=== PATIENT | female | born 1970 | race Caucasian/White ===

== ENCOUNTER 2016-08-11 14:47 | Observation (INO) | payer OTHER ==
[2016-08-11] VITALS (7 sets, daily range): BP systolic 102–147; BP diastolic 53–80; PULSE 65–99; RESP 15–19; O2SAT 98–100
[~2016-08-11] VITALS: Ht 162.6 cm; Wt 75.5 kg
[~2016-08-11 14:47] MED LIST: DOCU100T7 PO; OXYC-176 PO; TAM4 PO; TOR10T PO
[2016-08-11 15:28] LABS: BASOPHILS % (AUTO) 0.2 % (0-3); MONOCYTES % (AUTO) 14.4 % (4-12); Mean Corpuscular Hemoglobin 30.7 pg (27.0-35.0); NEUTROPHILS % (AUTO) 62.2 % (40-74); Platelet Count 197 bil/L (150-400)
[2016-08-11] MEDS ORDERED: 0.9% Sodium Chloride 1,000 ML IV ONE (15:33)
[2016-08-11] MEDS ORDERED: Ondansetron 2 mg/mL 2 mL Inj IVPUSH ONE (15:35)
--- NOTE | 2016-08-11 15:36 | DRSVH ---
PROCEDURE: X-RAY CHEST ONE VIEW, PORTABLE ([id number]) INDICATIONS: Chest pain. TECHNIQUE: One view of the chest was acquired. COMPARISON: None. FINDINGS: Surgical changes and devices: None. Lungs and pleura: Subtle increased attenuation is identified at the left lung base just above the chencho phragm. Otherwise, the aeration of the lungs is within normal limits. No focal consolidation, effus ion, or pneumothorax is evident. Mediastinum: Mediastinal contours appear normal. Heart size is normal. Bones and chest wall: No suspicious bony lesions. Degenerative changes of the imaged spine and shou lders are present. Overlying soft tissues appear unremarkable. IMPRESSION: Questionable subtle airspace disease at the left lung base may represent atelectasis. A subtle developing pneumonia is difficult to exclude. Please correlate clinically. Followup imaging in 4-6 weeks would be helpful to ensure complete resolution. Dictated by: Matheus Rosas M.D. on 08/11/2016 at 14:34 Approved by: Matheus Rosas M.D. on 08/11/2016 at 14:35
[2016-08-11 15:57] LABS: TROPONIN T < 0.010 ug/L (0.0-0.011)
[2016-08-11] MEDS ORDERED: Pantoprazole 40 mg ER24 Tablet PO ONE (16:10)
[2016-08-11 16:12] LABS: APPEARANCE,URINE CLEAR (CLEAR,HAZY); COLOR,URINE YELLOW (YELLOW); OCCULT BLOOD,URINE NEGATIVE (NEGATIVE); PH,URINE 6.5 (5.0-8.0); UROBILINOGEN,URINE NORMAL (NORMAL)
--- NOTE | 2016-08-11 16:36 | ED.REPORT ---
HPI-Chest Pain 40 and Over Date of Service Aug 11, 2016 ED Provider: Michael Park MD The patient is a 45 yo female with history of HTN who was sent to the ER from via EMS for chest pain, SOB, and dizziness. Patient reports not feeling well for the last week, but her symptoms got worse yesterday. She has had dizziness, SOB, and left-sided chest pain that associated with exertion. She was feeling ok when she woke up this morning, then she was going to do some workout when she felt very winded and weak. She describes her chest pain as "tight, tense, and heavy." The chest pain radiates to her left neck, but she thinks it is due to her chronic neck pain. The chest pain is worse with exertion and she feels like it would "pop out of my chest." Other associated symptoms include hot flashes, subjective fever, chills, palpitations, SOB, heartburn, nausea, tingling in the left fingers, dizziness, and generalized fatigue. All these symptoms worsen on exertion. She denies cough, headache, blurry vision, vomiting , abdominal pain, diarrhea, constipation, dysuria, or urinary incontinence. She went to the grocery store to check her BP and it was 89/62 with HR of 107 this morning. She called her PCP and was recommended to go to , where she had a temperature of 100.1. Patient took a trip to [place] last week. She reports irregular vaginal spotting with the LMP was a month ago. Last labs were done a year ago and only significant for elevated cholesterol. She denies any history of thyroid issues and states this to be generally healthy. Family history of CAD in her paternal grandparents. Nursing Notes Stated Complaint: CHEST PAIN Chief Complaint: Chest Pain Nursing Notes Reviewed: Yes Allergies: Coded Allergies: No Known Allergies (Verified Allergy, Unknown, 08/11/16) Scheduled Docusate Sodium-Expunged Drug, Do Not Renew! (Stool Softener-Expunged Drug, Do Not Renew!) 100 Mg Tablet 100 MG PO HS Ketorolac-Expunged Drug, Do Not Renew! (Ketorolac-Expunged Drug, Do Not Renew!) 10 Mg Tablet 10 MG PO PRN Take 1 tab every 8 hours if needed for pain Oxycodone/APAP-Expunged Drug, Do Not Renew! (Percocet 5/325-Expunged Drug, Do Not Renew!) 1 Each Tablet 1 TAB PO PRN Take 1-2 tabs every 3-4 hours if needed for pain Tamsulosin-Expunged Drug, Do Not Renew! (Flomax-Expunged Drug, Do Not Renew!) 0.4 Mg Capsule 0.4 MG PO HS General Time Seen by MD: 15:15 Chief Complaint Chest pain Hx Obtained From: Patient, Other family... (Mother) Arrived By: Ambulance, Walk-in Sudden in Onset?: Yes Onset Occurred: 1 week ago Symptom Duration: Waxes and wanes Location: : Chest left Quality: Heaviness Radiation: : Neck Severity: Current: No pain currently Severity: Maximum: Moderate Associated with: Reports: Diaphoresis, Dizziness, Fatigue, Fever, Lightheaded, Nausea, Near-syncope, Numbness/Tingling, Palpitations, Shortness of Breath, Weakness, Denies: Cough, productive, Syncope, Vomiting Pertinent Negative: Pt denies other symptoms Exacerbated by: Exertion, mild, Movement Relieved by: Rest Recent Healthcare: No recent doctor visit, No recent hospitalization Similar Sx Previous: No Risk Factors )( CAD Risk Stratification Family history Hyperlipidemia Hypertension Risk factors reviewed )( PE Risk Stratification No risk factors Well's Criteria for PE Clin suspicion of DVT (3) Well's PE Score: 3-6 pts (mod risk 20.5%) Past Medical History Past Medical History Pelvic inflammatory disease Kidney stones Reports: Hypertension Past Surgical History Tubal ligation Laparoscopy for PID Back surgery Family History Paternal grandparents with CAD Mother with HTN Smoking History Former Smoker (quit in 2000) Social History Alcohol Use: "Social" Drug Use: THC Other Social History: Good social support, Local resident Ambulatory Status Independent Review of Systems Constitutional: Reports: Chills, Fatigue, Fever, Malaise, Weakness - generalized, Denies: Recent wt loss Respiratory: Reports: Shortness of breath, Denies: Hemoptysis, Non-productive cough, Pleuritic pain, Wheezing Cardiovascular: Reports: Chest pain, Dyspnea on exertion, Palpitations, Denies: Edema, Syncope GI: Reports: Nausea, Denies: Abdominal pain, Anorexia, Bloody/tarry stool, Constipation, Diarrhea , Hematochezia, Vomiting Musculoskeletal: Reports: Myalgia, Neck pain, Denies: Back pain Neurologic: Reports: Dizziness, Lightheaded, Weakness, Denies: Abnormal movement, Bladder dysfunction, Bowel dysfunction, Change LOC , Confusion, Headache, Numbness, Slurred speech, Spinning sensation Complete sys rev & neg: except as marked. Physical Exam Initial Vital Signs Vital Signs (First) Date Time Temp Pulse Resp B/P Pulse Ox O2 Delivery O2 Flow Rate FiO2 08/11/16 14:54 37.2 91 15 142/66 98 Room Air Initial VS: Reviewed, Vital signs normal Head / Eyes: Atraumatic, Normocephalic, PERRL ENT: Mucous membranes moist, Conjunctiva normal, No scleral icterus Neck: Supple, Non-tender, Full range of motion Back: No CVA tenderness Lymphatic: No lymphadenopathy Extremities: Vascular intact, Neuro intact, No swelling, No tenderness Skin: Warm, Dry, No cyanosis Neurologic: Alert, Oriented, Nonfocal Psychiatric: Mood/affect normal, Behavior normal, Normal thought content General/Constitutional: Awake, Alert, Well developed, Well hydrated, Well nourished, Cooperative, Not toxic appearing Appears tired and uncomfortable, but not in pain or acute distress. Respiratory / Chest: Atraumatic, Breath sounds NL, Breath sounds = bilat, No respiratory distress, No rales, No rhonchi, No wheezing, No retractions patient complains of dizziness with taking deep breath Cardiovascular: Heart rate NL, Regular rhythm, Heart sounds NL, No gallop, No murmurs Abdomen: Atraumatic, Soft, Non-tender, No guarding, No rebound, BS normoactive , No distention Neurologic: Oriented X3, Speech NL, No motor deficits, No sensory deficits, CN II - XII intact, Cerebellar NL, Memory NL Psychiatric: Affect NL, Mood NL, Judgment/insight NL, Thought content NL Abnormal Mood/Affect: Positive: Anxious Interpretation & Diagnostics Lab Results Interpretation Result Diagram: 08/11/16 1523 08/11/16 1523 Test 08/11/16 15:23 08/11/16 15:58 White Blood Count 8.0th/mm3 (3.8-10.1) Red Blood Count 4.62mil/mm3 (3.90-5.20) Hemoglobin 14.2g/dL (12.0-15.6) Hematocrit 41.1% (35.0-46.0) Mean Corpuscular Volume 89.0fL (81-100) Mean Corpuscular Hemoglobin 30.7pg (27.0-35.0) Mean Corpuscular Hemoglobin Concent 34.5% (32.0-37.0) Red Cell Distribution Width 12.8% (12.3-15.4) Platelet Count 197bil/L (150-400) Neutrophils (%) (Auto) 62.2% (40-74) Lymphocytes (%) (Auto) 21.7% (14-46) Monocytes (%) (Auto) 14.4% (4-12) Eosinophils (%) (Auto) 1.0% (0-5) Basophils (%) (Auto) 0.2% (0-3) D-Dimer 0.56mg/L FEU (<0.50) Sodium Level 135mEq/L (134-144) Potassium Level 3.8mEq/L (3.5-5.2) Chloride Level 97mEq/L (97-108) Carbon Dioxide Level 20mmol/L (18-29) Blood Urea Nitrogen 20mg/dL (6-24) Creatinine 1.18mg/dL (0.57-1.00) Estimat Glomerular Filtration Rate 70mL/min (>59) Glucose Level 135mg/dL (60-99) Calcium Level 10.3mg/dL (8.5-10.1) Magnesium Level 2.0mg/dL (1.6-2.6) Total Bilirubin 0.4mg/dL (0.0-1.2) Aspartate Amino Transf (AST/SGOT) 15U/L (0-50) Alanine Aminotransferase (ALT/SGPT) 16U/L (0-32) Alkaline Phosphatase 63U/L (25-150) Total Protein 7.5g/dL (6.4-8.4) Albumin 4.2g/dL (3.4-5.0) Thyroid Stimulating Hormone (TSH) 1.600uIU/mL (0.450-4.500) Urine Color Yellow (YELLOW) Urine Appearance Clear (CLEAR,HAZY) Urine pH 6.5 (5.0-8.0) Urine Specific [place] <1.005 (1.003-1.035) Urine Protein Tracemg/dL (NEG,TRACE) Urine Glucose (UA) Negativemg/dL (NEGATIVE) Urine Ketones Negativemg/dL (NEGATIVE) Urine Occult Blood Negative (NEGATIVE) Urine Nitrite Negative (NEGATIVE) Urine Bilirubin Negative (NEGATIVE) Urine Urobilinogen Normalmg/dL (NORMAL) Urine Leukocyte Esterase Small (NEGATIVE) Urine RBC 0-2/hpf (0-2) Urine WBC 11-50/hpf (0-5) Urine Epithelial Cells Moderate/hpf (NONE-MOD) Urine Crystals None seen (NONE SEEN) Urine Bacteria Many/hpf (NONE-FEW) Urine Hyaline Casts None/lpf (NONE) Urine Granular Casts None seen (NONE SEEN) Urine Waxy Casts None seen (NONE SEEN) Urine Red Blood Cell Casts None seen (NONE SEEN) Urine White Blood Cell Casts None seen (NONE SEEN) Urine Mucus None seen (None Seen) Urine Trichomonas None seen (NONE SEEN) Urine Yeast None (NONE SEEN) Urinalysis Comment None Urine Culture Reflexed Indicated Lab values outside NL range: no clinical significance. Lab Results Interpretation: Positive UA. Urine negative. Ddimer 0.56 ECG Interpretation Time: 15:10 Interpreted by: ED physician Normal ECG Interpretation: Normal ECG w/ rate of... (74), Normal rate, Normal sinus rhythm, No acute ischemic changes, Normal intervals X-Ray Chest Interpretation Chest Xray Interpretation: IMPRESSION: Questionable subtle airspace disease at the left lung base may represent atelectasis. A subtle developing pneumonia is difficult to exclude. Please correlate clinically. Followup imaging in 4-6 weeks would be helpful to ensure complete resolution. Dictated by: Matheus Rosas M.D. on 08/11/2016 at 14:34 Approved by: Matheus Rosas M.D. on 08/11/2016 at 14:35 View: Portable Interpretation / Wet Read by: Interpret - Radiologist CT Chest Interpretation IMPRESSION: 1. Diagnostic sensitivity of study diminished by suboptimal contrast opacification of several segmental and subsegmental pulmonary arteries. 2. No large central pulmonary numbness. No pulmonary embolus identified in the well opacified segmental and subsegmental pulmonary arteries. Small pulmonary emboli cannot be excluded in the suboptimally opacified segmental and subsegmental pulmonary arteries. 2. Atherosclerosis. 3. No acute lung opacities. 4. No pleural effusions. Dictated by: Remedios Call MD, PhD on 08/11/2016 at 18:14 Approved by: Remedios Call MD, PhD on 08/11/2016 at 18:18 Interpretation / Wet Read by: Interpret - Radiologist Re-Eval/Medical Decision Med Decision/Clinical Course 45 yo female with history of HTN and hyperlipidemia who was sent to the ER from via EMS for multiple concerning symptoms onset 1 week. She admits to new- onset chest pain, SOB, and dizziness on exertion. She also has had several symptoms including hot flashes, subjective fever, chills, palpitations, SOB, heartburn, nausea, tingling in the left fingers, dizziness, and generalized fatigue. Patient admits to recent long car ride to [place] last week. No history of PE/DVT in the past. On exam, patient appears fatigue, but not in acute distress. Lung sounds clear with no rales or wheezes noted. The rest of her exam was normal as well. EKG: normal sinus rhythm and rate (74) Labs show: Positive UA. Urine negative. Ddimer 0.56 Slightly elevated Cr 1.16 Normal CBC and electrolytes CXR: Questionable subtle airspace disease at the left lung base may represent atelectasis. A subtle developing pneumonia is difficult to exclude. Chest CT: No pulmonary embolus identified in the well opacified segmental and subsegmental pulmonary arteries. Small pulmonary emboli cannot be excluded in the suboptimally opacified segmental and subsegmental pulmonary arteries. PE and pneumonia were ruled out by chest CT. Given her age and history, pretest probability of CAD is intermediate. Therefore, she should be admitted to the hospital on observation for a stress test in the morning. She was given a dose of Protonix and Zofran in the ER. She also received a liter of NS. Patient declined pain medication. All labs and imaging findings discussed with the patient and her family. Plan for admission for possible stress test in the morning. Patient verbalized understanding. Source of Hx: Family Time of Eval: 16:30 Patient Status: Condition unchanged Re-Evaluation/Progress Note: Patient rechecked and still feels dizzy with sitting up. Vital signs are within normal limit. Time of Eval: 17:05 Patient Status: Condition improved Re-Evaluation/Progress Note: Patient rechecked. Stated she was having some chest heaviness and dizziness as she walked to the bathroom earlier, but she feels better now. Declined pain medication. Labs result discussed and indication for chest CT. Plan for admission to rule out ACS. Patient verbalizes understanding and concurs with the plan. Consultation : Referral / Consult Name: Al Kumar MD Consulted With: Hospitalist Call Returned at: 17:00 [place]: Will see patient, Agrees with plan, Accepts admit Note: Hospitalist will see the patient after CT chest. Counseled Regarding: Diagnosis, Lab results, Need for admission Discharge & Departure Shift Change Sign-Out Response to Therapy: Improved Primary Impression: Chest pain on exertion Disposition: ADMITTED TO HOSPITAL Discharge Condition All VS Reviewed: Yes Condition: Stable Referrals: [facility] Attending Statement Seen and examined with Dr Jaffe on 08/11. Agree with above. copies to: [facility] Gerson Jaffe DO Aug 11, 2016 15:17 Michael Park MD Aug 11, 2016 19:01 Gerson Jaffe DO Aug 11, 2016 15:17
[2016-08-11] MEDS ORDERED: Alum-Mag Hydrox-Simeth 30 mL Suspension PO PRN (17:15)
[2016-08-11] MEDS ORDERED: Ondansetron 2 mg/mL 2 mL Inj IVPUSH PRN (17:15)
[2016-08-11] MEDS ORDERED: Polyethylene Glycol (PEG) 17 Gm Powder PO PRN (17:15)
--- NOTE | 2016-08-11 18:20 | DRSVH ---
PROCEDURE: CT ANGIO CHEST PULMONARY EMBOLISM ([id number]) INDICATIONS: SOB, CP TECHNIQUE: After the administration of intravenous contrast, 2 mm thick sections acquired from the pulmonary api anntia to the posterior costophrenic angles. 3-dimensional maximum intensity projection (MIP) coronal a nd sagittal reformats were then acquired through the thorax. For radiation dose reduction, the follo wing was used: automated exposure control, adjustment of mA and/or kV according to patient size. COMPARISON: None. FINDINGS: Image quality: Limited by suboptimal contrast opacification of several segmental and subsegmental pu lmonary arteries. Pulmonary arteries: Pulmonary arteries are normal in size, and demonstrate no intraluminal filling d efects to suggest large central pulmonary embolism. Lungs and pleura: Lungs are clear. No pleural effusions or pneumothorax. Central and peripheral ai rways are patent. Mediastinum: Heart size is normal, without pericardial effusion. Atherosclerotic calcifications are noted in the aorta and great vessels. No mediastinal or hilar adenopathy. Thoracic aorta is normal in caliber and enhancement. Esophagus is normal in caliber, without hiatal hernia. Bones and chest wall: No suspicious bony lesions. Ribs and thoracic spine appear intact throughout. Spine degenerative disease and facet arthropathy noted. Thyroid gland is within normal limits whe re visualized. No axillary or supraclavicular adenopathy. Abdomen: Visualized upper abdominal solid organs appear normal in the early arterial phase of enhanc ement. IMPRESSION: 1. Diagnostic sensitivity of study diminished by suboptimal contrast opacification of several segmen naveen and subsegmental pulmonary arteries. 2. No large central pulmonary numbness. No pulmonary embolus identified in the well opacified segme ntal and subsegmental pulmonary arteries. Small pulmonary emboli cannot be excluded in the suboptima lly opacified segmental and subsegmental pulmonary arteries. 2. Atherosclerosis. 3. No acute lung opacities. 4. No pleural effusions. Dictated by: Remedios Call MD, PhD on 08/11/2016 at 18:14 Approved by: Remedios Call MD, PhD on 08/11/2016 at 18:18
--- NOTE | 2016-08-11 18:53 | PCM.HPMED ---
Subjective Date of Service Aug 11, 2016 Primary Provider: Admitting Physician: Primary Care Physician: Mena Thomas DO Attending Physician: Chief Complaint: Chest pain History of Present Illness: Patient is a 45-year-old female with past medical history of hypertension. She presented to emergency department complaining of chest pain that is associated with subjective shortness of breath and dizziness. Her symptoms started two days ago after an intensive work out. Today she tried to work out again and felt the same symptoms again. Her pain is worse on exertion better at rest and after pain meds. Pain is reproducible on palpation. Pain radiates to her left neck though patient also has chronic neck pain. She has several other symptoms like hot flashes, palpitations, hot flashes, heartburn, nausea, tingling in her fingers, generalized fatigue. All these symptoms worsen with exertion. [facility] which was 89[facility]62 with heart rate of 107. She called her PCP and was recommended to go to urgent care. She has temperature of 100.1 at the urgent care. Patient had recent trip to [place]. She has family history of coronary artery disease in her grandparents. In the emergency department her vitals were stable, she had mildly elevated calcium 10.3. TSH was normal. Creatinine was mildly elevated 1.18 . D-dimer was elevated. Given patient's history of recent prolonged car trip, tachycardia, shortness of breath and chest pain CT scan of the chest with contrast was ordered to rule out PE. Emergency physician asked medicine to observe the patient in the hospital for further regulation of her chest pain. I will check her troponins 2, monitor on telemetry. Patient can have treadmill stress test tomorrow if possible. We will hydrate the patient with normal saline to treat her mild hypercalcemia. CT chest did not show PE. Review of Systems: GENERAL: + malaise, no fevers., SEE HPI HEENT: Negative for frequent or significant headaches, All other reviewed and negative other than HPI. Allergies Coded Allergies: No Known Allergies (Verified Allergy, Unknown, 08/11/16) Home Medications Lisinopril, HCTZ for HTN, Naproxen for colar bone, neck and shoulder discomfort PMH HTN, Neck pain, shoulder pain Family History CAD grandparents HTN Social History Hx Alcohol Use: Yes (varies) Hx Substance Use: Yes (MArijuana) Hx Tobacco Use: No Smoking Status: Former Smoker (quit in 2000) Exam Vital Signs Vital Sign - Last Date Time Temp Pulse Resp B/P Pulse Ox O2 Delivery O2 Flow Rate FiO2 08/11/16 14:54 37.2 91 15 142/66 98 Room Air Exam GENERAL: Alert, not in distress, cooperative HEAD: atraumatic, normocephalic, no bruises. EYES: DALIA, EOMI, anicteric, able to fully open and close eyelids SKIN: Skin color normal, turgor normal. No visible rashes or lesions. EAR, NOSE, MOUTH, THROAT: Lips, oral mucosa, tongue gums, oropharynx are moist , pink, no lesions. Ears normal appearance, no lesions. NECK: no jugulovenous distention, no carotid bruits, carotid pulse normal contour, No carotid bruit, supple, no enlarged lymph nodes appreciated; ROM normal. RESPIRATORY: Lungs clear to auscultation. Good diaphragmatic excursion. Normal percussion sound. CARDIAC: normal S1 and S2; no rubs, murmurs, or gallops; regular rate and rhythm ABDOMEN: Abdomen soft, non-tender. BS normal. No masses or organomegaly. MUSCULOSKELETAL: ROM full, muscles are not tender EXTREMITIES: no pitting edema in LE, no deformities, clubbing or no skin discoloration. NEURO: Alert, oriented X 3, Sensation grossly intact., Cranial nerves II-XII intact, Grossly normal motor function. PULSES: 2+ radial, 2+ carotid Lab and Diagnostics Result Diagram: 08/11/16 1523 08/11/16 1523 X-Rays, CTs and MRIs CXR IMPRESSION: Questionable subtle airspace disease at the left lung base may represent atelectasis. A subtle developing pneumonia is difficult to exclude. Please correlate clinically. Followup imaging in 4-6 weeks would be helpful to ensure complete resolution. Assessment & Plan Patient is a 45-year-old female with past medical history of hypertension. She presented to emergency department complaining of chest pain that is associated with subjective shortness of breath and dizziness. Her symptoms started last week, and slowly have been getting worse. Her pain is worse on exertion better at rest and after pain meds. Pain radiates to her left neck though patient also has chronic neck pain. She has several other symptoms like hot flashes, palpitations, feeling hot, heartburn, nausea, tingling in her fingers, generalized fatigue. All these symptoms worsen with exertion. She checks her blood pressure [employer] which was 89/62 with heart rate of 107. She called her PCP and was recommended to go to urgent care. She has temperature of 100.1 at the urgent care. Patient had recent trip to [place]. She has family history of coronary artery disease in her grandparents. In the emergency department her vitals were stable, she had mildly elevated calcium 10.3. TSH was normal. Creatinine was mildly elevated 1.18 . D-dimer was elevated. Given patient's history of recent prolonged car trip, tachycardia, shortness of breath and chest pain CT scan of the chest with contrast was ordered to rule out PE. I personally reviewed her chest x-ray which showed clear lungs. I personally reviewed her EKG which showed normal sinus rhythm. Emergency physician asked medicine to observe the patient in the hospital for further evaluation of her chest pain. I will check her troponins 2, monitor on telemetry. Patient can have treadmill stress test tomorrow if possible. We will hydrate the patient with normal saline to treat her mild hypercalcemia. I will monitor and replace her electrolytes as needed. VTE Prophylaxis: Sub-Q Enoxaparin Resuscitation Status: CPR: Attempt Resuscitation Al Kumar MD Aug 11, 2016 17:19
[2016-08-11] MEDS: 0.9% Sodium Chloride 1,000 ML IV SCH (19:34)
[2016-08-11] MEDS ORDERED: ROB500 PO (20:04)
[2016-08-12 01:29] VITALS: BP 102/68; PULSE 63; RESP 16; O2SAT 99
[2016-08-12] MEDS: 0.9% Sodium Chloride 1,000 ML IV SCH ×2 (05:26→15:00)
[2016-08-12 05:46] VITALS: BP 106/71; PULSE 67; RESP 16; O2SAT 99
[2016-08-12 07:04] LABS: TROPONIN T < 0.010 ug/L (0.0-0.011)
[2016-08-12] MEDS ORDERED: cefTRIAXone Inj 1,000 MG in Dextrose 5% Minibag Plus 50 ML IV SCH (08:20)
[2016-08-12 08:36] VITALS: BP 117/80; PULSE 60; RESP 16; O2SAT 100
[2016-08-12] MEDS ORDERED: LISI-567 PO (09:20)
[2016-08-12] MEDS ORDERED: HYDR12.55 PO (09:20)
[2016-08-12 09:55] VITALS: PULSE 85
[2016-08-12 12:42] VITALS: BP 142/83; PULSE 91; RESP 16; O2SAT 100
[2016-08-12 16:40] VITALS: BP 142/83; PULSE 80; RESP 16; O2SAT 99
--- NOTE | 2016-08-12 17:08 | DRSVH ---
[facility] [address] [place] [address] Echocardiogram Report Name: CHINYERE HARVEY JStudcipriano Giron te: 08/12/2016 Hospital Exam Location: [facility] Gender: Female : 1970 Age: 45 yrs Reason For Study: Chest pain Ordering Physician: HOSPITALIST [facility] Performed By: John Paul Dominique Referring Physician: RODRIGUEZ HOUSER Interpretation Summary This was a normal stress echocardiogram. There is no evidence for any myocardial ischemia or previous myocardial infarction. Resting LV function is normal with appropriate augmentation with exercise. The patient demonstrated mildly reduced exercise capacity without angina or significant ECG evidence of ischemia. Stress Results Protocol: MJ Maximum Predicted HR: 173 bpm Target HR: 147 bpm % Maximum Predicted HR: 86 % DurationHeart Rate Stage (mm:ss) (bpm) BP BASELINE 74 130/96 STAGE 1 3:00 12 7 170/82 STAGE 2 3:00 14 2 190/80 STAGE 3 0:17 14 9 / Stress Duration: 6:17 mm:ss * Maximum Stress HR: 149 bpm * Procedure: A two-dimensional exercise stress echocardiogram was performed. The study quality was technically adequate. There is no prior echocardiogram noted for this patient. There were no complications. Stress Test: The patient exercised for 6:17 on a standard Mj protocol. The treadmill was stopped when the patient became light headed. She began to stumble on treadmill but did not fall. The estimated YVONNE is +22%. There was a normal heart rate and blood pressure response to exercise. The patient developed headache during exercise. The patient did not have chest pain. The baseline ECG displays normal sinus rhythm. The resting ECG is normal. There was no significant ST segment depression with stress. There were no significant arrhythmias noted with stress. Rest Echo: Left ventricular size and wall thickness are normal. Left ventricular ejection fraction is estimated to be 60-65%. Stress Echo: The post stress ejection fraction is estimated to be 65-70%. There are no new focal wall motion abnormalities. Reading Physician:05:07 PM
--- NOTE | 2016-08-12 17:43 | PCM.DIMED ---
Discharge Instructions Date of Service Aug 12, 2016 Dates of Hospitalization Aug 11, 2016 at 17:19 Discharge Diagnosis Discharge Diagnosis # Chest pain ACS ruled out # Acute UTI #Acute kidney injury due to dehydration and UTI Diet Discharge Diet: No restrictions Activity Discharge Activity: No restrictions Call your provider Call your provider for: Fever or Chills, Shortness of breath, Bleeding, Chest pain, Vomitting, Excessive diarrhea, Weakness (unilateral) Patient Instructions Patient Instructions You were hospitalized due to chest pressure. EKG, cardiac enzymes, stress test negative for heart attack. Blood work showed he had some dehydration and slight kidney injury which responded to IV fluids. You also have UTI. Please continue Keflex for 3 days. Please keep yourself hydrated. Follow-up Provider: Mena Thomas DO Follow-up with PCP in: 1 week Bhavesh Carlos MD Aug 12, 2016 17:43
[2016-08-12] MEDS ORDERED: CEPH-512 PO (17:44)
--- NOTE | 2016-08-12 18:12 | PCM.DC.MED ---
Discharge Summary Date of Service Aug 12, 2016 Dates of Hospitalization Date of Hospital Admission Aug 11, 2016 at 17:19 Date of Discharge: Aug 12, 2016 Providers: Admitting Physician: Bhavesh Carlos MD Primary Care Physician: Mena Thmoas DO Attending Physician: Bhavesh Carlos MD Diagnosis at Time of Discharge Diagnosis at Time of Discharge # Chest pain ACS ruled out # Acute UTI #Acute kidney injury due to dehydration and UTI Procedures XRay, CTs & MRIs CXR IMPRESSION: Questionable subtle airspace disease at the left lung base may represent atelectasis. A subtle developing pneumonia is difficult to exclude. Please correlate clinically. Followup imaging in 4-6 weeks would be helpful to ensure complete resolution. Cardiac Echo Impression Interpretation Summary This was a normal stress echocardiogram. There is no evidence for any myocardial ischemia or previous myocardial infarction. Resting LV function is normal with appropriate augmentation with exercise. The patient demonstrated mildly reduced exercise capacity without angina or significant ECG evidence of ischemia. Brief History per HPI Patient is a 45-year-old female with past medical history of hypertension. She presented to emergency department complaining of chest pain that is associated with subjective shortness of breath and dizziness. Her symptoms started two days ago after an intensive work out. Today she tried to work out again and felt the same symptoms again. Her pain is worse on exertion better at rest and after pain meds. Pain is reproducible on palpation. Pain radiates to her left neck though patient also has chronic neck pain. She has several other symptoms like hot flashes, palpitations, hot flashes, heartburn, nausea, tingling in her fingers, generalized fatigue. All these symptoms worsen with exertion. She checks [facility] which [facility] 89/62 with heart rate of 107. She called her PCP and was recommended to go to urgent care. She has temperature of 100.1 at the urgent care. Patient had recent trip to [place]. She has family history of coronary artery disease in her grandparents. In the emergency department her vitals were stable, she had mildly elevated calcium 10.3. TSH was normal. Creatinine was mildly elevated 1.18 . D-dimer was elevated. Given patient's history of recent prolonged car trip, tachycardia, shortness of breath and chest pain CT scan of the chest with contrast was ordered to rule out PE. Emergency physician asked medicine to observe the patient in the hospital for further regulation of her chest pain. I will check her troponins 2, monitor on telemetry. Patient can have treadmill stress test tomorrow if possible. We will hydrate the patient with normal saline to treat her mild hypercalcemia. CT chest did not show PE. Hospital Course Patient is a 45-year-old female with past medical history of hypertension. She presented to emergency department complaining of chest pain that is associated with subjective shortness of breath and dizziness. Her symptoms started last week, and slowly have been getting worse. Her pain is worse on exertion better at rest and after pain meds. Pain radiates to her left neck though patient also has chronic neck pain. She has several other symptoms like hot flashes, palpitations, feeling hot, heartburn, nausea, tingling in her fingers, generalized fatigue. All these symptoms worsen with exertion. [facility] which was 89/62 with heart rate of 107. She called her PCP and was recommended to go to urgent care. She has temperature of 100.1 at the urgent care. Patient had recent trip to [place]. She has family history of coronary artery disease in her grandparents. In the emergency department her vitals were stable, she had mildly elevated calcium 10.3. TSH was normal. Creatinine was mildly elevated 1.18 . D-dimer was elevated. Given patient's history of recent prolonged car trip, tachycardia, shortness of breath and chest pain CT scan of the chest with contrast was ordered to rule out PE. I personally reviewed her chest x-ray which showed clear lungs. I personally reviewed her EKG which showed normal sinus rhythm. Emergency physician asked medicine to observe the patient in the hospital for further evaluation of her chest pain. # Chest pressure,ACS ruled out Probably due to demand ischemia due to dehydration -EKG negative, troponin negative, stress echo negative -Symptoms resolved # RACHEL /dehydration -Due to combination of UTI, poor oral intake, antihypertensive/diuretic use Patient had some RACHEL,Responded to IV Fluids Initial creatinine 1.15, improved to 0.69 # Asymptomatic UTI -Urine with pyuria and urine culture growing > 100,000 GNRs -Treated with ceftriaxone. Discharged on Keflex # Hypertension -Resume BP meds # History of kidney stones -Advised to follow-up with PCP Discharge home Condition on discharge stable Exam Vital Signs (Last) Date Time Temp Pulse Resp B/P Pulse Ox O2 Delivery O2 Flow Rate FiO2 08/12/16 16:40 37.3 80 16 142/83 99 Room Air Exam GENERAL: Alert, not in distress, cooperative HEAD: atraumatic, normocephalic, no bruises. EYES: DALIA, EOMI, anicteric, able to fully open and close eyelids SKIN: Skin color normal, turgor normal. No visible rashes or lesions. EAR, NOSE, MOUTH, THROAT: Lips, oral mucosa, tongue gums, oropharynx are moist , pink, no lesions. Ears normal appearance, no lesions. NECK: no jugulovenous distention, no carotid bruits, carotid pulse normal contour, No carotid bruit, supple, no enlarged lymph nodes appreciated; ROM normal. RESPIRATORY: Lungs clear to auscultation. Good diaphragmatic excursion. Normal percussion sound. CARDIAC: normal S1 and S2; no rubs, murmurs, or gallops; regular rate and rhythm ABDOMEN: Abdomen soft, non-tender. BS normal. No masses or organomegaly. MUSCULOSKELETAL: ROM full, muscles are not tender EXTREMITIES: no pitting edema in LE, no deformities, clubbing or no skin discoloration. NEURO: Alert, oriented X 3, Sensation grossly intact., Cranial nerves II-XII intact, Grossly normal motor function. PULSES: 2+ radial, 2+ carotid Test 08/11/16 15:23 08/11/16 15:58 08/12/16 05:55 White Blood Count 8.0th/mm3 (3.8-10.1) Red Blood Count 4.62mil/mm3 (3.90-5.20) Hemoglobin 14.2g/dL (12.0-15.6) Hematocrit 41.1% (35.0-46.0) Mean Corpuscular Volume 89.0fL (81-100) Mean Corpuscular Hemoglobin 30.7pg (27.0-35.0) Mean Corpuscular Hemoglobin Concent 34.5% (32.0-37.0) Red Cell Distribution Width 12.8% (12.3-15.4) Platelet Count 197bil/L (150-400) Neutrophils (%) (Auto) 62.2% (40-74) Lymphocytes (%) (Auto) 21.7% (14-46) Monocytes (%) (Auto) 14.4% (4-12) Eosinophils (%) (Auto) 1.0% (0-5) Basophils (%) (Auto) 0.2% (0-3) D-Dimer 0.56mg/L FEU (<0.50) Magnesium Level 2.0mg/dL (1.6-2.6) Thyroid Stimulating Hormone (TSH) 1.600uIU/mL (0.450-4.500) Urine Color Yellow (YELLOW) Urine Appearance Clear (CLEAR,HAZY) Urine pH 6.5 (5.0-8.0) Urine Specific [place] <1.005 (1.003-1.035) Urine Protein Tracemg/dL (NEG,TRACE) Urine Glucose (UA) Negativemg/dL (NEGATIVE) Urine Ketones Negativemg/dL (NEGATIVE) Urine Occult Blood Negative (NEGATIVE) Urine Nitrite Negative (NEGATIVE) Urine Bilirubin Negative (NEGATIVE) Urine Urobilinogen Normalmg/dL (NORMAL) Urine Leukocyte Esterase Small (NEGATIVE) Urine RBC 0-2/hpf (0-2) Urine WBC 11-50/hpf (0-5) Urine Epithelial Cells Moderate/hpf (NONE-MOD) Urine Crystals None seen (NONE SEEN) Urine Bacteria Many/hpf (NONE-FEW) Urine Hyaline Casts None/lpf (NONE) Urine Granular Casts None seen (NONE SEEN) Urine Waxy Casts None seen (NONE SEEN) Urine Red Blood Cell Casts None seen (NONE SEEN) Urine White Blood Cell Casts None seen (NONE SEEN) Urine Mucus None seen (None Seen) Urine Trichomonas None seen (NONE SEEN) Urine Yeast None (NONE SEEN) Urinalysis Comment None Urine Culture Reflexed Indicated Sodium Level 140mEq/L (134-144) Potassium Level 4.3mEq/L (3.5-5.2) Chloride Level 106mEq/L (97-108) Carbon Dioxide Level 17mmol/L (18-29) Blood Urea Nitrogen 16mg/dL (6-24) Creatinine 0.69mg/dL (0.57-1.00) Estimat Glomerular Filtration Rate 131mL/min (>59) Glucose Level 116mg/dL (60-99) Calcium Level 8.9mg/dL (8.5-10.1) Total Bilirubin 0.3mg/dL (0.0-1.2) Aspartate Amino Transf (AST/SGOT) 12U/L (0-50) Alanine Aminotransferase (ALT/SGPT) 11U/L (0-32) Alkaline Phosphatase 56U/L (25-150) Total Creatine Kinase 68U/L (21-215) Troponin T < 0.010ug/L (0.0-0.011) Total Protein 6.2g/dL (6.4-8.4) Albumin 3.6g/dL (3.4-5.0) Triglycerides Level 168mg/dL (0-149) Cholesterol Level 200mg/dL (100-199) LDL Cholesterol, Calculated 133.400mg/dL (0-99) VLDL Cholesterol 33.600mg/dL HDL Cholesterol 33mg/dL (>39) Cholesterol/HDL Ratio 6.06 (0.0-4.4) Discharge Medications Discharge Medications Cephalexin (Keflex) 500 Mg Capsule 500 MG PO TID Prescribed by: BHAVESH CARLOS MD Hydrochlorothiazide (Hydrochlorothiazide) 12.5 Mg Tablet 12.5 MG PO DAILY ( Reported) Lisinopril (Lisinopril) 20 Mg Tablet 30 MG PO DAILY (Reported) As needed Methocarbamol (Methocarbamol) 500 Mg Tablet 500 MG PO QID PRN PRN For Pain ( Reported) Followup Plan Disposition: Home Discharge Diet: No restrictions Discharge Activity: No restrictions Patient Instructions You were hospitalized due to chest pressure. EKG, cardiac enzymes, stress test negative for heart attack. Blood work showed he had some dehydration and slight kidney injury which responded to IV fluids. You also have UTI. Please continue Keflex for 3 days. Please keep yourself hydrated. Follow-up Provider: Mena Thomas DO Follow-up with PCP in: 1 week copies to: Mena Thomas Melaku MD Aug 12, 2016 18:12
== END 2016-08-12 18:00 | disposition home or self-care (01) ==
LOC: SED 14:47 → EDBD 14:47 → EDUNIT# 14:47 → MPC 17:19
PROVIDERS: ADMIT Internal Medicine; ATTEND Internal Medicine
DX: R07.9 Chest pain, unspecified (principal); N39.0 Urinary tract infection, site not specified; N17.9 Acute kidney failure, unspecified; E86.0 Dehydration; I10 Essential (primary) hypertension; E78.5 Hyperlipidemia, unspecified; M25.519 Pain in unspecified shoulder; M54.2 Cervicalgia; N73.9 Female pelvic inflammatory disease, unspecified; F12.90 Cannabis use, unspecified, uncomplicated; Z87.891 Personal history of nicotine dependence; Z87.442 Personal history of urinary calculi
CPT/HCPCS: 36415; 71010; 71275; 80053; 80061; 81000; 81025; 82550; 83735; 84443; 84484; 85025; 85378; 87086; 87088; 87186; 93005; 96361; 96365; 96375; 99285; C8930; G0378; G0463; J0696; J1650; J2405; J7030; Q9967